=== PATIENT | female | born 1935 | race Caucasian/White ===

== ENCOUNTER 2017-07-30 09:57 | Observation (INO) | payer OTHER ==
[2017-07-26 10:47] LABS: BASOPHILS % 0.5 % (0.0-1.0); EOSINOPHILS # (AUTO) 0.1 (0.0-0.4); EOSINOPHILS % 1.7 % (0.0-6.0); HEMATOCRIT 38.4 % (34.2-44.1); HEMOGLOBIN 12.4 g/dL (12.0-16.0); LYMPHOCYTES # (AUTO) 2.1 (1.0-3.2); LYMPHOCYTES % 27.3 % (18.0-39.1); MEAN CORPUSCULAR HEMOGLOBIN 29.5 pg (28-32); MEAN CORPUSCULAR HGB CONC 32.3 g/dL (31-35); MEAN CORPUSCULAR VOLUME 91.2 fL (81-99); MONOCYTES # (AUTO) 0.6 (0.2-0.8); MONOCYTES % 7.6 % (4.4-11.3); NEUTROPHILS # (AUTO) 4.7 (2.1-6.9); NEUTROPHILS % 62.6 % (38.7-80.0); PLATELET COUNT 291 x10e3/uL (140-360); RED BLOOD COUNT 4.21 x10e6/uL (3.6-5.1); RED CELL DISTRIBUTION WIDTH 13.7 % (11.7-14.4)
[2017-07-26 10:48] LABS: BILIRUBIN,URINE NEGATIVE (NEGATIVE); CLARITY,URINE CLEAR (CLEAR); COLOR,URINE YELLOW (YELLOW); KETONES,URINE NEGATIVE (NEGATIVE); LEUKOCYTE ESTERASE ,URINE TRACE (NEGATIVE); NITRITE,URINE NEGATIVE (NEGATIVE); PROTEIN,URINE DIPSTICK NEGATIVE (NEGATIVE); URINE UROBILINOGEN 0.2 mg/dL (0.2 - 1)
[2017-07-26 11:07] LABS: ANION GAP 16.7 mmol/L (8-16); BLOOD UREA NITROGEN 26 mg/dL (7-26); BUN/CREATININE RATIO 36 (6-25); CALCIUM 10.4 mg/dL (8.4-10.2); CARBON DIOXIDE 28 mmol/L (22-29); CHLORIDE 104 mmol/L (98-107); CREATININE, SERUM 0.72 mg/dL (0.57-1.11); EST GLOMERULAR FILTRATION RATE > 60 ML/MIN (60-); GLUCOSE 110 mg/dL (74-118); POTASSIUM 4.7 mmol/L (3.5-5.1); SODIUM 144 mmol/L (136-145)
--- NOTE | 2017-07-26 11:16 | Diagnostic Imaging Report ---
PROCEDURE: Frontal and lateral views of the chest. COMPARISONS: 10/26/15 INDICATIONS: PREOPERATIVE CHEST XRAY FOR KNEE SURGERY FINDINGS: Lines/tubes: None. Lungs: The lungs are well inflated. There is no evidence of mass or infiltrate. The pulmonary vascular markings are normal. Focal prominence of the pericardial fat pad adjacent to the left ventricular apex is stable. Pleura: There is no pleural effusion or pneumothorax. Heart and mediastinum: The cardiomediastinal silhouette is normal. No hilar lymphadenopathy. Bones: Stable mild degenerative changes of the acromioclavicular joints. Fusion plate in the lower cervical spine is partially imaged. The visualized portions are unremarkable. IMPRESSION: Stable chest. No active disease. Dictated by: Christen Williamson M.D. on 07/26/2017 at 11:24 Electronically approved by: Christen Williamson M.D. on 07/26/2017 at 11:24
[~2017-07-30] VITALS: Ht 162.6 cm; Wt 70.3 kg
[~2017-07-30 09:57] MED LIST: AMLODIPINE BESYL5 MG PO; BACTRIM DS TAB1 EACH PO; BACTROBAN15 GM TOP; CLEOCIN HCL150 MG PO; FLOVENT DISKUS50 MCG INH; GABAPENTIN; GABAPENTIN300 MG PO; GLUCOPHAGE500 MG PO; LISINOPRIL1 GM; LISINOPRIL10 MG PO; LISINOPRIL40 MG PO; LOVASTATIN; LOVASTATIN20 MG PO; LOVASTATIN40 MG PO; NEURONTIN100 MG PO; NORVASC5 MG PO; RIFAMPIN300 MG PO; TYLENOL WITH C1 EACH PO; ULTRAM50 MG PO; VALACYCLOVIR1000 MG PO; VISTARIL25 MG PO
[2017-07-30] MEDS ORDERED: CEFAZOLIN SOD 2 GM/D5W 50ML 50 ML IV ONE (10:19)
[2017-07-30] MEDS ORDERED: BACITRACIN 50,000 UNIT VIAL ONE (13:24)
[2017-07-30] MEDS ORDERED: ONDANSETRON HCL INJ 2 MG/ML VIAL IV PRN (16:00)
[2017-07-30] MEDS ORDERED: NALOXONE HCL INJ 0.4 MG/ML AMP IV PRN (16:00)
[2017-07-30] MEDS ORDERED: HYDROMORPHONE 0.2MG/ML-SOD CHL 30ML PCA SYRINGE IV PRN (16:00)
[2017-07-30] MEDS ORDERED: DIPHENHYDRAMINE HCL INJ 50 MG/ML VIAL IM/IV PRN (16:00)
[2017-07-30] MEDS ORDERED: ONDANSETRON HCL INJ 2 MG/ML VIAL ONE ×2 (16:24→18:03)
[2017-07-30] MEDS ORDERED: FENTANYL CITRATE/PF 100MCG/2 ML INJ ONE ×2 (16:58→19:05)
[2017-07-30 17:03] VITALS: BP 141/63
--- NOTE | 2017-07-30 17:03 | Diagnostic Imaging Report ---
PROCEDURE: X-RAY LEFT KNEE, ONE OR TWO VIEWS COMPARISON: None. INDICATIONS:post operative FINDINGS: See conclusion. CONCLUSION: Status post total left knee replacement with surrounding soft tissue swelling, air and kirsten consistent with recent surgery. No acute fractures. Dictated by: Jovon Hazel M.D. on 07/30/2017 at 17:12 Electronically approved by: Jovon Hazel M.D. on 07/30/2017 at 17:12
[2017-07-30] MEDS: SODIUM CHLORIDE 0.9% 1000ML 1,000 ML IV SCH (17:08)
[2017-07-30] MEDS ORDERED: PROMETHAZINE 25MG/ NS 50ML (IV) IV PRN (17:15)
--- NOTE | 2017-07-30 17:16 | Operative Report ---
DATE OF PROCEDURE: July 30, 2017 PREOPERATIVE DIAGNOSIS: End-stage arthritis left knee. POSTOPERATIVE DIAGNOSIS: End-stage arthritis left knee. PROCEDURE PERFORMED: Patient underwent a left total knee arthroplasty with a size E femoral component, a size 4 tibial component, a 17 mm tibial insert and a 35 mm patellar button. PAPER LATCHER: None. PAPER LATCHER: General endotracheal intubation anesthesia. IV FLUIDS: As per the anesthesia record. DESCRIPTION OF PROCEDURE AND FINDINGS: Ms. Perez was taken to the operating room and placed in the supine position on the operating table. Following induction of general anesthesia as well as endotracheal intubation, the patient's left lower extremity was examined under anesthesia. She had a varus alignment to the knee joint. There was patellofemoral crepitus with motion of the knee. Her ligaments were stable. The patient's lower extremity was prepped and draped in standard surgical fashion. An incision was created along the long axis of the knee. This incision was carried through the skin to the level of the extensor mechanism. Full-thickness flaps were elevated medially. The quadriceps and patellar tendons were exposed in their entirety. The quadriceps and the extensor mechanism were then incised along the medial border of the patella. The patella was everted. The fat pad was removed. Osteophytes were removed from the patella, tibia and femur. The knee was placed in flexion, and retractors were placed about the knee joint. The anterior-posterior cruciate ligaments were sacrificed at this time. Measurements were then taken to size the femur. The 5-in-1 cutting block was affixed to the femur, and the femoral cuts were performed. The intercondylar notch-cutting block was affixed to the femur, and the intercondylar notch cut was performed. The finishing block was affixed to the femur, and the finishing cuts were performed. Attention was then turned to the tibia. The posterior knee retractor was placed within the knee joint, and the external tibial alignment guide was affixed to the tibia and adjusted appropriately. The proximal tibia was cut. The keel-cutting device was affixed to the tibia, and the keel cut was performed. Trial femoral and tibial components were inserted in the knee joint, and the soft tissues were balanced. A 17 mm tibial insert was inserted into the knee joint, and the knee was placed in a range of motion and found to be stable. The patella was then reamed, and a patellar button was affixed to the undersurface of the patella. The patellofemoral joint was reduced, and the knee was placed through a range of motion and the patella was found to track appropriately. All trial components were removed. The bone was prepared for cementation. Cement was mixed on the back table. The femoral, tibial and patellar components were then cemented into place. The knee was again reduced and placed in motion and found be stable. Hemostasis was obtained. The extensor mechanism was repaired with nonabsorbable sutures. The remaining soft tissues were closed in a multilayer fashion. Sterile dressings were applied, and the patient was then awakened and taken to the postanesthesia care unit in stable condition. Job#: [id number] EV
[2017-07-30] MEDS: ACETAMINOPHEN 1000 MG/100 ML IV SCH (17:38)
[2017-07-30 18:03] VITALS: BP 141/63
[2017-07-30] MEDS ORDERED: ACETAMINOPHEN 1000 MG/100 ML IV ONE (18:03)
[2017-07-30] MEDS ORDERED: PROPOFOL IV EMULSION 10 MG/ML 20 ML VIAL ONE (18:03)
[2017-07-30] MEDS ORDERED: DEXAMETHASONE SOD PHOS INJ 4 MG/ML VIAL ONE (18:03)
[2017-07-30 18:08] VITALS: BP 141/63
[2017-07-30] MEDS ORDERED: EPINEPHRINE HCL INJ 1 MG/ML AMP ONE (18:55)
[2017-07-30] MEDS ORDERED: ROPIVACAINE 0.5% 5 MG/ML 30 ML SDV ONE (18:55)
[2017-07-30] MEDS ORDERED: MORPHINE SULFATE INJ 10 MG/ML ONE (19:05)
[2017-07-30] MEDS ORDERED: MIDAZOLAM HCL 2 MG/2 ML VIAL ONE (19:05)
[2017-07-30 20:00] VITALS: BP 109/53
[2017-07-30] MEDS: CEFAZOLIN SOD 1 GM VIAL IV SCH (20:31)
[2017-07-30] MEDS: HYDROCODONE/APAP 10MG-325MG TAB PO PRN (20:32)
[2017-07-30] MEDS ORDERED: CEFAZOLIN SOD 1 GM/NS 50ML 50 ML IV SCH (22:00)
[2017-07-31] VITALS (7 sets, daily range): BP systolic 95–169; BP diastolic 50–68
[2017-07-31] MEDS: ACETAMINOPHEN 1000 MG/100 ML IV SCH ×2 (01:10→06:24)
[2017-07-31] MEDS: SODIUM CHLORIDE 0.9% 1000ML 1,000 ML IV SCH (01:51)
[2017-07-31] MEDS: CEFAZOLIN SOD 1 GM VIAL IV SCH ×2 (05:00→12:05)
[2017-07-31 07:52] LABS: HEMATOCRIT 27.6 % (34.2-44.1)
[2017-07-31] MEDS ORDERED: DEXTROSE 50% SYRINGE 50 ML IV PRN (08:45)
[2017-07-31] MEDS ORDERED: TRAMADOL HCL 50 MG TAB PO SCH (08:45)
[2017-07-31] MEDS: HYDROCODONE/APAP 10MG-325MG TAB PO PRN ×3 (09:10→17:35)
[2017-07-31] MEDS: METFORMIN HCL 500 MG TAB PO SCH ×2 (10:19→17:35)
[2017-07-31] MEDS: GABAPENTIN 300 MG CAP PO SCH ×4 (10:19→21:00)
[2017-07-31] MEDS: SENNOSIDES 8.6 MG TAB PO SCH ×2 (10:19→17:35)
[2017-07-31] MEDS: IRON-VITAMIN-MINERAL CAPSULE PO SCH ×3 (10:19→17:35)
[2017-07-31] MEDS: INSULIN LISPRO 100 UNIT/1 ML 3ML VIAL SQ SCH ×3 (11:30→21:00)
[2017-07-31] MEDS: TRAMADOL HCL 50 MG TAB PO PRN ×2 (12:05→22:16)
[2017-07-31] MEDS: VALACYCLOVIR HCL 500 MG TAB PO SCH ×2 (13:01→21:00)
[2017-07-31] MEDS ORDERED: VALACYCLOVIR HCL 500 MG TAB PO SCH (17:00)
[2017-07-31] MEDS: RIVAROXABAN 10 MG TABLET PO SCH (17:35)
[2017-07-31] MEDS: SIMVASTATIN 20 MG TAB PO SCH (21:00)
[2017-07-31] MEDS ORDERED: NON-FORMULARY MEDICATION (Lisinopril 40 MG) PO SCH (21:00)
[2017-07-31] MEDS: AMLODIPINE BESYLATE 5 MG TAB PO SCH (21:00)
[2017-08-01] VITALS (9 sets, daily range): BP systolic 100–140; BP diastolic 50–63
[2017-08-01] MEDS ORDERED: ACETAMINOPHEN 325 MG TAB PO PRN ×2 (05:15→20:45)
[2017-08-01 06:21] LABS: HEMATOCRIT 27.5 % (34.2-44.1); HEMOGLOBIN 9.2 g/dL (12.0-16.0)
[2017-08-01] MEDS: INSULIN LISPRO 100 UNIT/1 ML 3ML VIAL SQ SCH ×4 (07:30→21:12)
[2017-08-01] MEDS ORDERED: KETOROLAC TROMETHAMINE 60 MG/2 ML VIAL IM ONE (08:45)
[2017-08-01] MEDS: IRON-VITAMIN-MINERAL CAPSULE PO SCH ×2 (09:43→17:13)
[2017-08-01] MEDS: LISINOPRIL 20 MG TAB PO SCH (09:43)
[2017-08-01] MEDS: METFORMIN HCL 500 MG TAB PO SCH ×2 (09:43→17:13)
[2017-08-01] MEDS: GABAPENTIN 300 MG CAP PO SCH ×4 (09:43→21:12)
[2017-08-01] MEDS: VALACYCLOVIR HCL 500 MG TAB PO SCH ×2 (09:44→21:12)
[2017-08-01] MEDS: LIDOCAINE 5% PATCH TP SCH (09:44)
[2017-08-01] MEDS: SENNOSIDES 8.6 MG TAB PO SCH ×2 (09:44→17:13)
[2017-08-01] MEDS: RIVAROXABAN 10 MG TABLET PO SCH (17:13)
[2017-08-01] MEDS: SIMVASTATIN 20 MG TAB PO SCH (21:12)
[2017-08-01] MEDS: AMLODIPINE BESYLATE 5 MG TAB PO SCH (21:12)
[2017-08-02 04:00] VITALS: BP 103/52
[2017-08-02] MEDS: HYDROCODONE/APAP 10MG-325MG TAB PO PRN ×2 (04:36→09:45)
[2017-08-02] MEDS: INSULIN LISPRO 100 UNIT/1 ML 3ML VIAL SQ SCH ×3 (07:30→16:48)
[2017-08-02] MEDS: SENNOSIDES 8.6 MG TAB PO SCH ×2 (09:45→16:48)
[2017-08-02] MEDS: LISINOPRIL 20 MG TAB PO SCH (09:45)
[2017-08-02] MEDS: METFORMIN HCL 500 MG TAB PO SCH ×2 (09:45→16:48)
[2017-08-02] MEDS: VALACYCLOVIR HCL 500 MG TAB PO SCH (09:45)
[2017-08-02] MEDS: GABAPENTIN 300 MG CAP PO SCH ×3 (09:45→16:48)
[2017-08-02] MEDS: LIDOCAINE 5% PATCH TP SCH (09:45)
[2017-08-02] MEDS: IRON-VITAMIN-MINERAL CAPSULE PO SCH ×2 (09:45→16:48)
[2017-08-02 12:00] VITALS: BP 99/54
[2017-08-02] MEDS: CELECOXIB 200 MG CAP PO SCH ×2 (12:25→16:48)
[2017-08-02 16:00] VITALS: BP 96/54
[2017-08-02] MEDS: RIVAROXABAN 10 MG TABLET PO SCH (16:48)
[2017-08-02 20:28] VITALS: BP 95/51
--- NOTE | 2017-08-21 14:38 | Discharge Summary ---
ADMISSION DIAGNOSIS: End-stage arthritis, left knee. DISCHARGE DIAGNOSIS: End-stage arthritis, left knee. OPERATION PERFORMED: Patient underwent a left total knee arthroplasty on July 30, 2017. CONSULTATIONS: General medicine service, as well as physical therapy. BRIEF DESCRIPTION OF THE PATIENT'S HOSPITAL STAY: Ms. Perez was admitted to the hospital on July 30, 2017, and underwent an uncomplicated total knee arthroplasty. She tolerated the procedure well, and returned to the postsurgical floor following her surgery. Her initial postoperative pain was controlled well with intravenous followed by oral analgesics. She tolerated her diet following her surgery. DVT prophylaxis was provided during her hospital stay. She was also followed by the general medicine service during her hospital stay. She was mobilized with physical therapy, but failed to meet the goals of the therapist during her hospital stay. A social service consult was obtained, and the patient was evaluated and ultimately transferred to a [facility] facility in stable condition. DISCHARGE INSTRUCTIONS: Continue weightbear to tolerance on her left lower extremity. Continue her medications that she was on prior to admission. She was also to take Xarelto on a daily basis. She will follow up with Dr. Dillon' office in 10-14 days. She will contact Dr. Dillon with fevers greater than 101.5 that were sustained, excessive drainage from her wounds or intractable pain. She will keep her wound clean, dry and intact. KIT DILLON MD Job#: [id number] [place]
== END 2017-08-02 20:45 ==
LOC: OR 09:57 → MED/SURG 16:35
PROVIDERS: ADMIT Specialist; ATTEND Specialist
PROC: 0SRD0J9 Replacement of Left Knee Joint with Synthetic Substitute, Cemented, Open Approach (ICD-10-PCS; principal; 2017-07-30 12:00)
DX: M17.12 Unilateral primary osteoarthritis, left knee (principal); E11.9 Type 2 diabetes mellitus without complications; I10 Essential (primary) hypertension; E78.00 Pure hypercholesterolemia, unspecified; Z01.812 Encounter for preprocedural laboratory examination; Z01.818 Encounter for other preprocedural examination
CPT/HCPCS: 27447; 36415 ×5; 71020; 73560; 80048; 81003; 82948 ×4; 83036; 85014 ×2; 85018 ×2; 85025; 86850; 86900; 86920; 93005; 97110 ×2; 97116 ×3; 97139; 97161; 97530 ×2; C1713 ×2; G0378 ×4; J0171; J0690 ×2; J1100; J1200; J1885; J2250; J2270; J2405 ×2; J2550; J2795; J7030